=== PATIENT | male | born 1965 | race Asian ===

== ENCOUNTER 2017-01-11 21:50 | Emergency (ER) | payer MEDICARE ==
[~2017-01-11 21:50] MED LIST: ONDA8TAB7 PO; PANT40TA3 PO; QUET300T PO; SUCR1ORA PO
[2017-01-11 21:53] VITALS: BP 131/79; PULSE 103; RESP 22; O2SAT 96
--- NOTE | 2017-01-11 22:00 | ED.REPORT ---
HPI-Abd Pain M 40 and Over Date of Service January 11, 2017 ED Provider: Morris Argueta MD A 51 year old male with a history of metastatic stomach cancer on hospice is brought to the ED accompanied by hospice doctors due to abdominal fluid buildup causing pain and limiting his breathing. The pt was seen in the ED six days ago and had 2.8 L of fluid drained from his abdomen. The fluid has built up again and his hospice doctor is requesting another fluid drainage tonight. The pt took his normal medications this morning, but has been experiencing abdominal discomfort, nausea and vomiting. Nursing Notes Stated Complaint: LIQUID BUILD UP Chief Complaint: Male Abdominal Pain Nursing Notes Reviewed: Yes Allergies: Coded Allergies: No Known Allergies (Verified , 03/04/16) Scheduled Pantoprazole DR (Pantoprazole DR) 40 Mg Tablet.dr 40 MG PO BIDAC Quetiapine Fumarate (Seroquel) 300 Mg Tablet 400-600 MG PO HS Sucralfate (Sucralfate) 1 Gm/10 Ml Oral.susp 1,000 MG PO TIDAC Scheduled PRN Ondansetron ODT (Zofran ODT) 8 Mg Tablet 8 MG PO Q4H PRN PRN For Nausea General Time Seen by MD: 21:59 Chief Complaint Other (Abdominal fluid buildup) Hx Obtained From: Patient, Other family..., Benefits Processor (hospice doctor) Arrived By: Walk-in Sudden in Onset?: No Recent Healthcare: Recent doctor visit, Recent hospitalization Similar Sx Previous: Yes Past Medical History Past Medical History Notes: On hospice care Past Medical History Metastatic stomach cancer Schizophrenia Gastrointestinal bleed Kidney stones Depression Previous suicide attempt Past Surgical History Reports: Cholecystectomy Smoking History Former Smoker Social History Drug Use: Denies drug use Other Social History: Good social support Ambulatory Status Independent Review of Systems Review of Systems Note: abdominal fluid buildup Respiratory: Denies: Non-productive cough Cardiovascular: Denies: Chest pain GI: Reports: Abdominal pain, Nausea, Vomiting Complete sys rev & neg: except as marked. Physical Exam Initial Vital Signs Vital Signs (First) Date Time Temp Pulse Resp B/P Pulse Ox O2 Delivery O2 Flow Rate FiO2 01/11/17 21:53 36.4 103 22 131/79 96 Room Air Initial VS: Reviewed General/Constitutional: Awake, Alert pale ill-appearing alopecia Respiratory / Chest: Atraumatic, Breath sounds NL, Breath sounds = bilat, No respiratory distress Cardiovascular: Heart rate NL, Regular rhythm, Heart sounds NL 1+ edema peripherally Abdomen: Atraumatic, Soft Bowel Sounds / Distention: Positive: Bowel sounds hypoactive protuberant, tender abdomen obvious ascites Back: Atraumatic, Full range of motion Head / Eyes: Atraumatic, Normocephalic, PERRL, EOMI pale sclera ENT: Atraumatic, Airway patent, Mucous membranes moist Skin: Atraumatic, Color NL, No rash, Warm, Dry Neurologic: Oriented X3, Speech NL, No motor deficits, No sensory deficits Neck: Atraumatic, Supple, Full range of motion Upper Extremity / MS: Atraumatic, Full range of motion Lower Extremity / Pelvis / MS: Atraumatic, Full range of motion Procedures Procedure Notes: Abdominal Paracentesis: 00:11 ED physician informed consent provided, time-out performed, hand hygiene observed, sterile stand technique 2.6 L drained superior to iliac crest, left lateral abdominal line no complications, pt tolerated procedure well, pt stable Re-Eval/Medical Decision Med Decision/Clinical Course 51-year-old with end-stage metastatic stomach cancer and ascites, presents with symptomatic ascites requesting paracentesis for therapeutic purposes. This was accomplished in standard fashion with 2700 mL of yellow clear fluid obtained. He is much relieved. He is discharged now back to hospice for ongoing care. Source of Hx: Old records Time of Eval: 00:11 Patient Status: Condition improved Re-Evaluation/Progress Note: Pt rechecked, who is stable. Abdominal paracentesis is performed without complication. The diagnosis and plan for discharge are discussed. The pt and family understand and agree with the plan. All questions are addressed at this time. Counseled Regarding: Diagnosis, Lab results, Need for follow-up, When/why to return to ED Discharge & Departure Primary Impression: Ascites, malignant Disposition: Home Vital Signs - All Vital Signs Date Time Temp Pulse Resp B/P Pulse Ox O2 Delivery O2 Flow Rate FiO2 01/12/17 01:06 101 14 128/78 97 Room Air 01/12/17 00:55 36.7 95 16 128/85 96 Room Air 01/11/17 21:53 36.4 103 22 131/79 96 Room Air )( All Prior VS Reviewed: Yes Condition: Stable Patient Instructions: Ascites (ED) Additional Instructions: Follow-up with your doctor. Return if any immediate issues. Follow up with hospice. Referrals: OTHER,PHYSICIAN (PCP) (Family) Scribe Attestation Portions of this note were transcribed by Matthias Bush. I, Dr. Argueta personally performed the history, physical exam and medical decision-making; I reviewed and confirmed the accuracy of the information in the transcribed note. Signed by: Jocelyne Levine, 01/12/17 and 0130. Morris Argueta MD January 11, 2017 22:00 MATTHIAS BUSH January 11, 2017 22:33
[2017-01-11] MEDS ORDERED: HYDROmorphone 1 mg/mL Inj IM ONE (22:25)
[2017-01-11] MEDS ORDERED: Ondansetron 8 mg ODT Tablet PO ONE (22:25)
[2017-01-12] MEDS ORDERED: HYDROmorphone 1 mg/mL Inj IVPUSH ONE (00:45)
[2017-01-12 00:55] VITALS: BP 128/85; PULSE 95; RESP 16; O2SAT 96
[2017-01-12] MEDS ORDERED: HepLOK Flush 100 unit/mL 5 mL Inj ONE (00:55)
[2017-01-12 01:06] VITALS: BP 128/78; PULSE 101; PULSE 61; RESP 14; O2SAT 97
== END 2017-01-12 01:12 | disposition home or self-care (01) ==
LOC: SED 21:50
DX: R18.0 Malignant ascites (principal); C16.9 Malignant neoplasm of stomach, unspecified; F32.9 Major depressive disorder, single episode, unspecified; Z87.891 Personal history of nicotine dependence
CPT/HCPCS: 49082; 96372; 96374; 99284; J1170; J1642